=== PATIENT | male | born 1950 | race Caucasian/White ===

== ENCOUNTER 2025-03-11 16:49 | Emergency (ER) | payer OTHER ==
[~2025-03-11] VITALS: Ht 182.9 cm; Wt 85.0 kg
[2025-03-11] MEDS ORDERED: LOSARTAN POTASS25 MG PO (17:11)
[2025-03-11] MEDS ORDERED: PROSCAR5 MG PO (17:11)
[2025-03-11] MEDS ORDERED: TRAZODONE HCL50 MG PO (17:12)
[2025-03-11] MEDS ORDERED: DOCUSATE S100 MG/10 TOP (17:47)
[2025-03-11 18:01] VITALS: BP 148/68
== END 2025-03-11 18:01 | disposition home or self-care (01) ==
LOC: ED 16:49
DX: H11.32 Conjunctival hemorrhage, left eye (principal); H61.23 Impacted cerumen, bilateral; Z79.899 Other long term (current) drug therapy
CPT/HCPCS: 99282